=== PATIENT | male | born 1970 | race African-American/Black ===

== ENCOUNTER 2020-04-22 10:44 | Emergency (ER) | payer OTHER, SELFPAY ==
--- NOTE | ~2020-04-22 | CT_ITS ---
EXAMINATION: CT soft tissue neck w con EXAM DATE: 04/22/2020 12:56 INDICATION: Right-sided facial swelling, dental pain. TECHNIQUE: Spiral CT of the neck was performed following intravenous injection of 75 mL Omnipaque 350 . Axial, coronal and sagittal images were reviewed. The dose-length product (DLP) for this examinat ion was 575.96 mGy-cm. The exposure was tailored according to patient size (auto mA exposure control ), and iterative reconstruction (ASIR) was used as additional dose reduction technique. There is no prior study for comparison. FINDINGS: There is swelling along the chin and right side of the mandible. There is circumscribed swe lling anterior to the right side of the mandible, could be phlegmon. No discrete rim enhancing draina ble abscess. There are dental cavities suspected. There is lucency surrounding the tooth a 10/31/2023 a pex of tooth #21 left lower premolar. There is reactive submandibular lymphadenopathy. The thyroid gland is unremarkable. The submandibular and parotid glands are symmetric. The supe rior mediastinum is unremarkable. The airway is unremarkable. Parapharyngeal and pre-glottic fat planes are preserved. The opacified vasculature is patent. The orbits are unremarkable. Visuali zed sinuses and mastoid air cells are well aerated. Lung apices are clear. There is cervical spond ylosis. IMPRESSION: Swelling, inflammation along right mandibular body toward the chin without discrete rim-e nhancing organized drainable abscess. Dental cavities and left lower premolar apical lucency. Reviewed, dictated and finalized at location A. [employer] IMPRESSION: Swelling, inflammation along right mandibular body toward the chin without discrete rim-enhancing organized drainable abscess. Dental cavities and left lower premolar apical lucency.
[2020-04-22 11:36] VITALS: BP 200/106; PULSE 116; RESP 18; O2SAT 98
--- NOTE | 2020-04-22 11:43 | ED.DENTAL ---
HPI - Dental/Oral General Chief complaint: Dental/Oral Stated complaint: facial swelling worsening/dental Time Seen by Provider: 04/22/20 11:25 Source: patient Mode of arrival: ambulatory Limitations: no limitations History of Present Illness HPI Narrative: This is a 49-year-old male that presents the emergency department for right-sided facial swelling x2 days. Reports he was seen by his dentist for this and started on amoxicillin. Reports he has been taking this as prescribed without relief. Denies fever, dysphagia, or shortness of breath. MD Complaint: tooth pain Location: Tooth # (30) Related Data Allergies Allergy/AdvReac Type Severity Reaction Status Date / Time No Known Allergies Allergy Unverified 10/27/16 14:10 Review of Systems Review of Systems: Narrative: CONSTITUTIONAL: Denies fever, chills, or sweats. EYES: Denies visual changes, redness, or discharge. ENT: Denies rhinorrhea, congestion, sore throat, or otalgia. CARDIOVASCULAR: Denies chest pain, palpitations, or edema. RESPIRATORY: Denies cough or dyspnea. GASTROINTESTINAL: Denies abdominal pain, nausea, vomiting, or diarrhea. GENITOURINARY: Denies dysuria or hematuria. SKIN: Denies rash or itching. MUSCULOSKELETAL: Denies back pain, joint pain, or myalgia. NEUROLOGIC: Denies headache, numbness, or weakness. PSYCHIATRIC: Denies anxiety or depression. All systems reviewed & are unremarkable except as noted in HPI and below PMFSH Past Medical History Medical History (Updated 04/22/20 @ 14:15 by Brittany Burns PA-C) History of hypertension Family History Family History (Updated 10/03/16 @ 14:43 by DOCTOR UNKNOWN) Other Diabetes mellitus Social History Social History Smoking status: Current every day smoker Smoking end date: 03/27/15 Alcohol intake: current Gender identity (if verbalized by the patient): Male Exam Narrative: Exam Narrative: GENERAL: Well-appearing, well-nourished, and in no acute distress. HEAD: Normocephalic, atraumatic. EYES: EOMI. ENT: Mucous membranes moist. Oropharynx without tonsillar hypertrophy exudate or other lesions. Bilateral TMs pearly osullivan non-bulging. Tooth #31 tender to palpation with moderate surrounding erythema and edema. Floor of mouth is soft. No trismus NECK: Supple. Tender mild-moderate right sided submandibular adenopathy CHEST: Clear to auscultation. No respiratory distress. No wheezes rales or rhonchi HEART: Regular rate and rhythm. No murmur heard. Normal peripheral pulses. EXTREMITIES: Normal range of motion. No edema. SKIN: Warm, dry, no rash. NEURO: No focal deficits. Alert and oriented x3. PSYCH: Normal mood and affect Course Consultations Consultation #1: Spoke with Dr. Elliott about patient and work-up. Patient was on amlodipine 10mg daily for blood pressure control. May restart this and patient needs to follow-up in clinic Date: 04/22/20 Time: 11:57 Vital Signs Vital signs: Vital Signs Pulse Rate 116 H 04/22/20 11:36 Respiratory Rate 18 04/22/20 11:36 Blood Pressure 200/106 H 04/22/20 11:36 Pulse Oximetry 98 04/22/20 11:36 Pulse Rate 94 04/22/20 13:12 Respiratory Rate 18 04/22/20 11:36 Blood Pressure 155/112 H 04/22/20 13:12 Pulse Oximetry 98 04/22/20 11:36 Procedures Abscess I/D oral: Date of Incision: 04/22/20 Time of Incision: 14:20 Local Anesthetic: none (Cetacaine) Technique: needle aspiration I&D Results: Blood MDM - Dental/Oral MDM Narrative Medical decision making narrative: Patient presents the emergency department for dental infection x2 days. He is afebrile and nontoxic-appearing. CBC with white blood cell count of 10.2. ESR is normal. CRP elevated to 6.2. CT scan of the facial bones and soft tissue neck shows swelling and inflammation along the right mandibular body toward the chin without discrete rim-enhancing organized drainable abscess. Floor of mouth is soft. No trismus. I did at
[2020-04-22 12:17] LABS: Anion Gap 5 mmol/L (8-16); Blood Urea Nitrogen 10 mg/dL (9-20); CRP 6.2 mg/dL (<1.0); Calcium 9.2 mg/dL (8.4-10.2); Carbon Dioxide 32 mmol/L (22-30); Chloride 98 mmol/L (98-107); Estimated CRCL calculation 104 ml/min; Estimated Glomerular Filt Rate > 60; Glucose 123 mg/dL (75-110); Potassium 4.1 mmol/L (3.4-5.0); Sodium 135 mmol/L (137-145)
[2020-04-22] MEDS: LABETALOL HCL INJ 100 MG/20 ML VIAL 20 MG IV PUSH (12:17)
[2020-04-22] MEDS: KETOROLAC 15 MG/ML VIAL (*BKC) IV PUSH (12:17)
[2020-04-22 12:39] LABS: Basophils Absolute Auto 0.1 K/mm3 (0.0-0.1); Basophils Percent Auto 0.6 % (0.2-1.2); Eosinophils Absolute Auto 0.1 K/mm3 (0-0.3); Eosinophils Percent Auto 1.3 % (0-4.4); Hematocrit 44.4 % (42.0-52.0); Hemoglobin 15.2 g/dL (14.0-18.0); Immature Granulocyte Absolute 0.03 K/mm3 (0.00-0.031); Immature Granulocyte Percent A 0.3 % (0-0.5); Lymphocytes Absolute Auto 1.71 K/mm3 (0.9-3.2); Lymphocytes Percent Auto 16.7 % (18.3-44.2); Mean Corpuscular HGB Conc 34.2 g/dl (32-36); Mean Corpuscular Volume 84.6 fl (80-100); Mean Platelet Volume 10.8 fl (7.4-10.4); Monocytes Absolute Auto 0.9 K/mm3 (0.1-0.6); Neutrophils Absolute Auto 7.4 K/mm3 (1.3-6.7); Neutrophils Percent Auto 72.1 % (45.5-73.1); Platelet Count Result 193 k/mm3 (150-375); Red Blood Count 5.25 M/mm3 (4.6-6.20); Red Cell Distribution Width 12.8 % (11.5-14.5); White Blood Count 10.2 K/mm3 (4.5-10.0)
[2020-04-22 12:46] LABS: Erythrocyte Sedimentation Rate 17 mm/hr (0-20)
[2020-04-22 13:12] VITALS: BP 155/112; PULSE 94; RESP 18
[2020-04-22] MEDS: AMPICILLIN SULB 3 GM/NS 100 ML 3 GM/100 ML VIAL IVPB (14:14)
[2020-04-22 14:59] VITALS: BP 158/120; PULSE 99; RESP 18; TEMP 37.1; O2SAT 100
== END 2020-04-22 14:57 | disposition home or self-care (01) ==
PROVIDERS: Physician Assistant; Emergency Provider Emergency Medicine; PCP Family Medicine
DX: K04.7 Periapical abscess without sinus (principal); I10 Essential (primary) hypertension
CPT/HCPCS: 36415; 41800; 70491; 80048; 85025; 85652; 86140; 96365; 96375; 99284; A9270; J0295; J1885; Q9967

== ENCOUNTER 2021-01-16 10:53 | Outpatient (CLI) | payer OTHER, SELFPAY ==
[2021-01-16 12:07] LABS: Alanine Aminotransferase 44 U/L (4-50); Albumin Level 4.3 g/dL (3.5-5.1); Alkaline Phosphatase 82 U/L (38-126); Anion Gap 6 mmol/L (8-16); Aspartate Amino Transferase 33 U/L (17-59); Bilirubin,Total 0.3 mg/dL (0.2-1.3); Blood Urea Nitrogen 16 mg/dL (9-20); Calcium 9.6 mg/dL (8.4-10.2); Carbon Dioxide 34 mmol/L (22-30); Chloride 102 mmol/L (98-107); Cholesterol 171 mg/dL (0-200); Estimated Glomerular Filt Rate > 60; Glucose 125 mg/dL (65-110); HDL Direct 45 mg/dL; Potassium 3.8 mmol/L (3.4-5.0); Sodium 142 mmol/L (137-145); Triglycerides 83 mg/dL (<150)
[2021-01-16 12:18] LABS: LDL Cholesterol Direct 108 mg/dL
== END 2021-01-16 10:54 | disposition home or self-care (01) ==
LOC: ANHLAB 10:54
PROVIDERS: PCP Family Medicine; Visit Provider Family Medicine
DX: I10 Essential (primary) hypertension (principal)
CPT/HCPCS: 36415; 80053; 80061